=== PATIENT | female | born 1975 | race Caucasian/White ===

== ENCOUNTER 2022-05-01 12:20 | Observation (INO) ==
--- NOTE | 2022-05-01 13:39 | XRay Report ---
XR chest 2V PA/lateral CLINICAL HISTORY: Chest pain, nonspecific TECHNIQUE: 2 views of the chest were obtained. Comparison: Comparison is made to CT chest 07/24/2015 FINDINGS: No lines and tubes are seen. The cardiomediastinal silhouette is normal. The lungs are clear. No evid ence of pleural effusion or pneumothorax. IMPRESSION: No acute chest disease. ACT 112: Negative or not required by law. Electronically signed by: Jamshid Cesar M.D. 05/01/2022 1:38 PM
[2022-05-01 13:43] LABS: Basophils # (auto) 0.05 K/uL (0-0.2); Basophils % (auto) 0.4 %; Eosinophils # (auto) 0.15 K/uL (0-0.50); Eosinophils % (auto) 1.1 %; Hematocrit (blood only) 42.1 % (34.1-44.9); Hemoglobin 14.4 g/dl (12.0-16.0); Immature Granulocytes % (auto) 0.7 %; Lymphocytes # (auto) 1.59 K/uL (1.2-3.4); Lymphocytes % (auto) 11.2 %; Mean Corpuscular Hemoglobin 30.3 pg (25.0-34.0); Mean Corpuscular Hgb Conc 34.2 g/dL (32.0-36.0); Mean Corpuscular Volume 88.4 fL (80.0-100.0); Mean Platelet Volume 10.7 fL (9.4-12.3); Monocytes # (auto) 0.73 K/uL (0.24-0.82); Monocytes % (auto) 5.1 %; Neutrophils # (auto) 11.58 K/uL (1.4-6.5); Neutrophils % (auto) 81.5 %; Platelet Count 306 K/uL (130-400); RDW Coefficient of Variation 13.2 % (11.5-14.5); RDW Standard Deviation 42.5 fL (36.4-46.3); Red Blood Count 4.76 M/uL (3.93-5.22)
[2022-05-01 14:06] LABS: Partial Thromboplastin Ratio 0.9; Partial Thromboplastin Time 23.5 Seconds (21.0-31.0); Prothrombin Time 10.3 Seconds (9.0-12.0)
[2022-05-01 14:07] LABS: Troponin I High Sensitivity 2.8 pg/ml (0-14)
[2022-05-01 14:17] LABS: Alanine Aminotransferase 31 U/L (7-52); Albumin Globulin Ratio 1.1 (0.9-2); Albumin Level 3.8 gm/dl (3.4-5.0); Alkaline Phosphatase 75 U/L (34-104); Anion Gap 8 (3-11); Aspartate Aminotransferase 47 U/L (13-39); BUN Creatinine Ratio 18.1 (10-20); Bilirubin,Total 0.6 mg/dl (0.2-1.0); Blood Urea Nitrogen 15 mg/dl (6-23); Calcium 8.9 mg/dl (8.5-10.1); Carbon Dioxide 26 mmol/L (21-32); Chloride 100 mmol/L (98-107); Est GFR (African American) 96.6 ml/min; Est GFR (Non-African American) 83.4 ml/min; Globulin 3.4 gm/dl (2.5-4.0); Glucose 114 mg/dl (70-99(Fasting)); Potassium 3.7 mmol/L (3.5-5.1); Sodium 134 mmol/L (136-145); Total Protein 7.2 gm/dl (6.0-8.3)
--- NOTE | 2022-05-01 14:57 | Emergency Department Note ---
Impression & Plan Chest pain, Acute hyponatremia, Leukocytosis ED Provider Note NAME: KEVIN CONDE AGE: 46 SEX: F : 1975 ARRIVES VIA: Ambulance INFORMANT: Patient, ED PROVIDER(S): Germán Colin MD CHIEF COMPLAINT: Chest pain MEDICAL DECISION MAKING: Patient did present due to concern for chest pain. The patient did have blood work completed along with an EKG troponin and chest x-ray. The patient already received aspirin but was ordered additional nitro as well as Tylenol to help avoid any possible headache. White count of 14 but the patient denies any infectious symptoms. Normal H&H and platelet count. Kidney function is unremarkable. Mild hyponatremia 134. Initial troponin is negative. COVID- negative. I did reassess the patient did have improvement with her chest pain with nitro. Given this I did speak with the on-call hospitalist PORTIA Phillips and the patient was admitted by Dr. Burciaga. Prior /Outside records reviewed: None Differential diagnosis: Cardiac ischemia, aortic dissection, pulmonary embolism, pneumothorax, pneumonia, pericarditis, myocarditis, esophageal rupture, GERD, cholecystitis, pancreatitis, musculoskeletal, as well as other pathologies. Diagnostics, as interpreted by me: ECG: Normal sinus rhythm, rate of normal sinus rhythm, rate of 92 normal HI and QRS, normal axis nonspecific T wave abnormality. No ST elevations. Cardiac monitoring: An order was placed for continuous cardiac monitoring. The monitor shows a rate of 88 with sinus rhythm. Patient was placed on pulse oximetry Medical decision rules: None Imaging studies: See below HPI: Patient presents due to concern for chest pain. The patient states that this began she was getting her children ready for school around 10 and this morning. Patient described as a heaviness in the upper chest. Patient did not necessarily have exertional symptoms but did have some diaphoresis and did feel clammy. No reported nausea or vomiting. No prior history of heart attack or stroke in parents or siblings or in the patient. Patient is a non-smoker. No history of DVT or PE. The patient did not take anything for symptoms at home. The patient did receive aspirin 324 as well as nitro in route. Patient states that her pain went from a 10 to a 2 and did have significant relief. Patient does complain of some mild persistent chest discomfort at this time. No upper respiratory symptoms cough or fever. No history of DVT or PE. Patient denies any recent hospitalization surgeries or procedures. PAST MEDICAL HISTORY: See Below PAST SURGICAL HISTORY: See Below SOCIAL HISTORY: See Below HOME MEDICATIONS: See Below ALLERGIES: See Below VITALS: See Below PHYSICAL EXAMINATION: GENERAL: NAD, wearing a mask, non-toxic. EYE EXAM: Normal conjunctiva. PERRL, no anisocoria and EOM's grossly intact w/o pain. NECK: Supple, no nuchal rigidity, no adenopathy, non-tender. No signs of meningismus. FROM of the neck with good chin to chest and neck extension. No stridor. LUNGS: Clear to auscultation. Normal chest wall mechanics. HEART: NSR, no MRG. ABDOMEN: Abdomen soft, non-tender, normo-active bowel sounds, no masses, no rebound or guarding. BACK: No CVA TTP. SKIN: No rashes and no bruising. UPPER EXTREMITIES: Upper extremities are grossly normal. LOWER EXTREMITIES: Grossly normal, no edema. Negative Homans' sign bilaterally. NEURO EXAM: A&O x3, cranial nerves II-XII grossly intact, normal speech, moves all 4 extremities. Past Med/Surg History Medical History Anxiety and depression IBS (irritable bowel syndrome) Surgical History History of dilation and curettage History of tubal ligation Hx of cholecystectomy Family History Mother Breast cancer Father Prostate cancer Social History Smoking Status: Never smoker Second Hand Exposure: No; Hx Alcohol Use: Yes Hx Substance Use: No Preferred Language: Cambodian Communication Ability: Effective Angular Js Developer Required: No Beliefs That Will Affect Care: None Current Living Situation: Spouse Other Information That Helps Us Care for You: No Feels Safe at Home: Yes Safety Concerns: Feels Safe At This Time Assistive Devices: None Allergies Allergies Allergy/AdvReac Type Severity Reaction Status Date / Time No Known Allergies Allergy Verified 05/01/22 16:32 Home Meds Home Medications Medication Instructions Recorded Confirmed Probiotic Chewable 6 billion cells PO BID 05/01/22 05/01/22 diphenoxylate-atropine 2.5 1 tab PO DAILY 05/01/22 05/01/22 mg-0.025 mg tablet escitalopram oxalate 20 mg tablet 20 mg PO DAILY 05/01/22 05/01/22 pantoprazole 40 mg tablet,delayed 40 mg PO DAILY 05/01/22 05/01/22 release Results & Data (ED) Vital Signs Vital Signs - 24 hr 05/01/22 15:26 05/01/22 15:26 05/01/22 15:26 Pulse Rate 80 Pulse Rate [Finger] 88 Pulse Rhythm [Finger] Regular Respiratory Rate 18 18 Respiratory Effort / Characteristics Non-Labored Spontaneous Respiratory Depth Normal Blood Pressure [Left Arm] 121/92 Blood Pressure Mean [Left Arm] 101 Pulse Oximetry 96 96 Oxygen Delivery Method Room Air Room Air Room Air Oxygen Flow Rate 94 05/01/22 17:00 Pulse Rate Pulse Rate [Finger] 76 Pulse Rhythm [Finger] Respiratory Rate 18 Respiratory Effort / Characteristics Respiratory Depth Blood Pressure [Left Arm] 126/74 Blood Pressure Mean [Left Arm] 91 Pulse Oximetry 97 Oxygen Delivery Method Room Air Oxygen Flow Rate Home Medications Current Medication List: was personally reviewed by me Laboratory Data Attestation: I reviewed the patient's lab results. 05/01/22 13:22 05/01/22 13:22 Lab Results 05/01/22 05/01/22 05/01/22 Range/Units 13:22 13:22 13:22 WBC 14.20 H (4.8-10.8) K/ul RBC 4.76 (3.93-5.22) M/uL Hgb 14.4 (12.0-16.0) g/dl Hct 42.1 (34.1-44.9) % MCV 88.4 (80.0-100.0) fL MCH 30.3 (25.0-34.0) pg MCHC 34.2 (32.0-36.0) g/dL RDW Std Deviation 42.5 (36.4-46.3) fL RDW Coeff of Trent 13.2 (11.5-14.5) % Plt Count 306 (130-400) K/uL MPV 10.7 (9.4-12.3) fL Immature Gran % (Auto) 0.7 % Neut % (Auto) 81.5 % Lymph % (Auto) 11.2 % [place] % (Auto) 5.1 % Eos % (Auto) 1.1 % Baso % (Auto) 0.4 % Neut # (Auto) 11.58 H (1.4-6.5) K/uL Lymph # (Auto) 1.59 (1.2-3.4) K/uL [place] # (Auto) 0.73 (0.24-0.82) K/uL Eos # (Auto) 0.15 (0-0.50) K/uL Baso # (Auto) 0.05 (0-0.2) K/uL Immature Gran # (Auto) 0.10 H (0.00-0.02) K/uL PT 10.3 (9.0-12.0) Seconds INR 1.0 (0.9-1.1) APTT 23.5 (21.0-31.0) Seconds PTT Ratio 0.9 Sodium 134 L (136-145) mmol/L Potassium 3.7 (3.5-5.1) mmol/L Chloride 100 (98-107) mmol/L Carbon Dioxide 26 (21-32) mmol/L Anion Gap 8 (3-11) BUN 15 (6-23) mg/dl Creatinine 0.83 (0.6-1.2) mg/dl Est Cr Clr Drug Dosing Not Reportable Est GFR ( Amer) 96.6 ml/min Est GFR (Non-Af Amer) 83.4 ml/min BUN/Creatinine Ratio 18.1 (10-20) Glucose 114 H (70-99(Fasting)) mg/dl Calcium 8.9 (8.5-10.1) mg/dl Total Bilirubin 0.6 (0.2-1.0) mg/dl AST 47 H (13-39) U/L ALT 31 (7-52) U/L Alkaline Phosphatase 75 (34-104) U/L Troponin I High Sens 2.8 (0-14) pg/ml Total Protein 7.2 (6.0-8.3) gm/dl Albumin 3.8 (3.4-5.0) gm/dl Globulin 3.4 (2.5-4.0) gm/dl Albumin/Globulin Ratio 1.1 (0.9-2) SARS-CoV-2, RNA, NAAT (NEGATIVE) 05/01/22 05/01/22 Range/Units 16:30 17:09 WBC (4.8-10.8) K/ul RBC (3.93-5.22) M/uL Hgb (12.0-16.0) g/dl Hct (34.1-44.9) % MCV (80.0-100.0) fL MCH (25.0-34.0) pg MCHC (32.0-36.0) g/dL RDW Std Deviation (36.4-46.3) fL RDW Coeff of Trent (11.5-14.5) % Plt Count (130-400) K/uL MPV (9.4-12.3) fL Immature Gran % (Auto) % Neut % (Auto) % Lymph % (Auto) % [place] % (Auto) % Eos % (Auto) % Baso % (Auto) % Neut # (Auto) (1.4-6.5) K/uL Lymph # (Auto) (1.2-3.4) K/uL [place] # (Auto) (0.24-0.82) K/uL Eos # (Auto) (0-0.50) K/uL Baso # (Auto) (0-0.2) K/uL Immature Gran # (Auto) (0.00-0.02) K/uL PT (9.0-12.0) Seconds INR (0.9-1.1) APTT (21.0-31.0) Seconds PTT Ratio Sodium (136-145) mmol/L Potassium (3.5-5.1) mmol/L Chloride (98-107) mmol/L Carbon Dioxide (21-32) mmol/L Anion Gap (3-11) BUN (6-23) mg/dl Creatinine (0.6-1.2) mg/dl Est Cr Clr Drug Dosing Est GFR ( Amer) ml/min Est GFR (Non-Af Amer) ml/min BUN/Creatinine Ratio (10-20) Glucose (70-99(Fasting)) mg/dl Calcium (8.5-10.1) mg/dl Total Bilirubin (0.2-1.0) mg/dl AST (13-39) U/L ALT (7-52) U/L Alkaline Phosphatase (34-104) U/L Troponin I High Sens 3.1 (0-14) pg/ml Total Protein (6.0-8.3) gm/dl Albumin (3.4-5.0) gm/dl Globulin (2.5-4.0) gm/dl Albumin/Globulin Ratio (0.9-2) SARS-CoV-2, RNA, NAAT NEGATIVE (NEGATIVE) Administered Medications Escitalopram Oxalate (Escitalopram Oxalate 20 Mg Tab) 20 mg PO DAILY TOBI Stop: 06/01/22 08:59 Last Admin: 05/02/22 08:26 Dose: 20 mg Documented By: MG Pantoprazole Sodium (Pantoprazole 40 Mg Tab) 40 mg PO BID TOBI Stop: 05/31/22 20:59 Last Admin: 05/02/22 08:26 Dose: 40 mg Documented By: Admin: 05/01/22 20:32 Dose: Not Given Documented By: LUIS MIGUEL Discontinued Medications Al Hydrox/Mg Hydrox/Simethicone (Gi Cocktail Ed Use) 1 dose PO NOW ONE Stop: 05/01/22 17:46 Last Admin: 05/01/22 17:58 Dose: 1 dose Documented By: ZELALEM Sodium Chloride (Nss 1000ml) 500 mls @ 999 mls/hr IV .Q31M ONE Stop: 05/01/22 15:38 Last Infusion: 05/01/22 16:02 Dose: 0 mls/hr Documented By: Admin: 05/01/22 15:16 Dose: 999 mls/hr Documented By: VALENTE Nitroglycerin (Nitroglycerin Sl 0.4 Mg/Tab Tab) 0.4 mg SL NOW STA Stop: 05/01/22 15:09 Last Admin: 05/01/22 15:16 Dose: 0.4 mg Documented By: VALENTE Imaging Data Radiologist's Impression: Chest X-Ray 05/01/22 12:59 XR chest 2V PA/lateral CLINICAL HISTORY: Chest pain, nonspecific TECHNIQUE: 2 views of the chest were obtained. Comparison: Comparison is made to CT chest 07/24/2015 FINDINGS: No lines and tubes are seen. The cardiomediastinal silhouette is normal. The lungs are clear. No evidence of pleural effusion or pneumothorax. IMPRESSION: No acute chest disease. ACT 112: Negative or not required by law. Electronically signed by: Jamshid Cesar M.D. 05/01/2022 1:38 PM Discharge Plan Visit Data Chief Complaint: Chest Pain Stated Complaint: WEAKNESS, UNABLE TO AMBULATE ED Provider: Germán Colin Discharge Problem: Chest pain, Acute hyponatremia, Leukocytosis Patient Disposition: Admitted As Inpatient Discharge Instructions Interventions: ED Discharge Assessment Last Done: 05/01/22 21:35
[2022-05-01] MEDS ORDERED: NITROGLYCERIN SL 0.4 MG/TAB TAB SL STA (15:08)
[2022-05-01] MEDS ORDERED: SODIUM CHLORIDE 0.9% 1000ML 500 ML IV ONE (15:08)
[2022-05-01] MEDS ORDERED: ALUMINUM/MAGNESIUM SUSP 18 ML, LIDOCAINE VISCOUS 2% SOLN 6 ML, BARCODE IDENTIFIER 1 EACH PO ONE (17:32)
[2022-05-01] MEDS ORDERED: GI COCKTAIL ED USE PO ONE (17:45)
--- NOTE | 2022-05-01 17:47 | History & Physical Report ---
Date of Service May 01, 2022 Assessment & Plan (1) Chest pain: Plan: Obs to med/surg with tele Patient presenting from home with reports of a sudden onset midsternal, sharp chest pain. Improvement in symptoms with 3 sprays of nitroglycerin by EMS and 1 sublingual nitroglycerin in the ED. Initial troponin negative, EKG without acute ST changes History of GI issues over the past 1 year. ?? Esophageal spasm causing symptoms today Trial GI cocktail Increase PPI to BID Trend troponin, resting echo to evaluate for wall motion abnormalities (2) Anxiety and depression: Plan: Continue escitalopram DVT PROPHYLAXIS SCDs I spent a total of 45 minutes coordinating, documenting, and providing care for this patient excluding time spent in the performance of separately billed services. This included personally reviewing all current laboratories and imaging studies, medication reconciliation, outpatient chart review, and discussion with specialists. History of Present Illness Chief Complaint: Chest pain Primary Care Provider: Jose Olguin MD 46-year-old female with PMH anxiety, depression, IBS, and other problems listed below who presents to the ED for evaluation of chest pain. Patient reports that she was getting her children ready for school this morning when she had sudden onset of a midsternal, sharp chest pain. Patient rates the pain as a #10/10. States that her daughter called EMS. Patient reports associated diaphoresis. Denies shortness of breath, lightheadedness, dizziness, nausea. Patient received 3 sprays of nitroglycerin by EMS and 4 baby aspirin. Patient reports this improved her pain significantly. While in the ED, patient had another episode of sharp pain. She received 1 sublingual nitroglycerin and again had improvement in discomfort. Patient currently rates her pain as a #2/10. Over the past 1 to 2 years, patient has been having GI issues including postprandial nausea and diarrhea. Patient has been diagnosed with IBS. She also has history of atypical chest pain that was felt to be secondary to GERD in the past and was started on PPI with improvement in symptoms. Patient reports he otherwise has been feeling well recently. No other recent illnesses, fevers, chills. She denies urinary symptoms. In the ED, initial troponin is negative, EKG without acute ST changes. Patient is hemodynamically stable. Allergies Allergy/AdvReac Type Severity Reaction Status Date / Time No Known Allergies Allergy Verified 05/01/22 16:32 Home Medications Medication Instructions Recorded Confirmed Type Probiotic Chewable 6 billion cells PO BID 05/01/22 05/01/22 History diphenoxylate-atropine 2.5 1 tab PO DAILY 05/01/22 05/01/22 History mg-0.025 mg tablet escitalopram oxalate 20 mg tablet 20 mg PO DAILY 05/01/22 05/01/22 History pantoprazole 40 mg tablet,delayed 40 mg PO DAILY 05/01/22 05/01/22 History release Past Med/Surg History Medical History Anxiety and depression IBS (irritable bowel syndrome) Surgical History History of dilation and curettage History of tubal ligation Hx of cholecystectomy Family History Mother Breast cancer Father Prostate cancer Social History (Updated 05/01/22 @ 17:43 by PORTIA Plascencia) Smoking Status: Never smoker Hx Alcohol Use: Yes (24 twisted teas/weekend) Feels Safe at Home: Yes Review of Systems Review of Systems: ROS per HPI, all other systems reviewed and negative Physical Exam Constitutional: WD/WN, vitals as above Eyes: PERRL, conjunctivae normal, anicteric sclerae ENMT: external ear and nose normal, oropharynx normal Respiratory: normal respiratory effort, lungs clear to auscultation Cardiovascular: Rate/Rhythm: regular rate and regular rhythm Vessels: normal peripheral pulses Extremities: no edema Chest (Breasts): Additional Comments: chest pain not reproducible with palpation Gastrointestinal (Abdomen): normal bowel sounds, soft, nontender, no hepatosplenomegaly Musculoskeletal: no cyanosis or clubbing, extremities motor strength 5/5 Skin: no rashes, warm and dry Neurologic: PERRL, EOMI, accommodation nl, no face palsy, no dysarthria Psychiatric: A+Ox3, euthymic affect Results & Data Results & Data ([facility]) Vital Signs (Past 12 Hours) Vital Signs Temp Pulse Pulse Resp BP BP Pulse Ox 05/01/22 17:00 76 18 126/74 97 05/01/22 15:26 80 18 96 05/01/22 15:26 88 18 121/92 96 05/01/22 15:26 05/01/22 12:54 37.5 C 96 H 20 124/83 97 O2 Del Method O2 Flow Rate 05/01/22 17:00 Room Air 05/01/22 15:26 Room Air 05/01/22 15:26 Room Air 05/01/22 15:26 Room Air 94 05/01/22 12:54 Room Air Laboratory Results Short CBC 05/01/22 Range/Units 13:22 WBC 14.20 H (4.8-10.8) K/ul Hgb 14.4 (12.0-16.0) g/dl Hct 42.1 (34.1-44.9) % Plt Count 306 (130-400) K/uL BMP 05/01/22 13:22 Sodium 134 L Potassium 3.7 Chloride 100 Carbon Dioxide 26 BUN 15 Creatinine 0.83 Glucose 114 H Calcium 8.9 Liver Function 05/01/22 Range/Units 13:22 Total Bilirubin 0.6 (0.2-1.0) mg/dl AST 47 H (13-39) U/L ALT 31 (7-52) U/L Alkaline Phosphatase 75 (34-104) U/L Albumin 3.8 (3.4-5.0) gm/dl Diagnostic Findings Chest X-Ray 05/01/22 12:59 XR chest 2V PA/lateral CLINICAL HISTORY: Chest pain, nonspecific TECHNIQUE: 2 views of the chest were obtained. Comparison: Comparison is made to CT chest 07/24/2015 FINDINGS: No lines and tubes are seen. The cardiomediastinal silhouette is normal. The lungs are clear. No evidence of pleural effusion or pneumothorax. IMPRESSION: No acute chest disease. ACT 112: Negative or not required by law. Electronically signed by: Jamshid Cesar M.D. 05/01/2022 1:38 PM Code Status & VTE Plan VTE Prophylaxis Plan VTE Prophylaxis will be ordered: Yes Supervising Physician Co-Signing Physician Notes The patient is a 46-year-old female presenting with acute sharp midsternal chest pain that improved with nitroglycerin. She reports symptoms like this in the past that were improved with drinking water and were thought to be related to acid reflux. She reports not taking Protonix until just yesterday when her PCP put her on Protonix and Lomotil. She also has ongoing diarrhea as noted above. She reports some days she can have 6 loose stools and other days she can have just 1. She gets generalized cramping associated with the stools that is intermittent. She had an EGD and colonoscopy per record review in June 2021. Colonoscopy revealed multiple small polyps in the transverse colon and one polyp in the rectum. EGD revealed normal esophagus normal stomach and normal duodenum. Biopsies were taken in upper and lower GI tract showing tubular adenomas. Welchol was attempted for her diarrhea but she didn't use it with any frequency and therefore was unsure if this was helpful. She reports being started on Lomotil and Protonix yesterday by her PCP. On exam she is an obese female in NAD. Cardiac exam is unremarkable and there is no chest wall TTP. Lungs are clear to auscultation throughout. Abdomen is soft NTND. There is no gross focal neuromuscular deficits. Workup today includes a leukocytosis of 14K, H/H 12/42, and normal PLT. Coag panel is normal. Chemistry is normal. Liver panel reveals a mildly elevated AST at 47 and ALT 31. HS troponin is 2.8-->3.1. EKG is non ischemic. CXR is clear. Overall this is a 46-year-old female presenting with atypical chest pain in the substernal region. Etiologies include but are not limited to esophageal spasm, uncontrolled GERD, gastritis. This pain does not appear cardiac in nature. She appears on educated about sugar intake and diet. She reported to me that she eats salads all the time and does not understand why she cannot lose weight. However, she reports drinking 20+ twisted teas on the weekends which contain 23 g of sugar each. When I asked about an elimination diet she said yes she has tried them but did not go into detail. She may need more education on these so she can try a lactose-free diet, etc. Outpatient follow-up with GI as recommended. She should continue on her Protonix but use caution with Lomotil as this can cause significant constipation. Agree with continuing to observe her overnight and attempt to control her pain with PPI therapy or H2 maria teresa the rapy as needed. May even consider Carafate in the short-term given the excessive alcohol intake on the weekends and possibility of gastritis. Outpatient nutrition consult is also recommended for further education on weight loss strategies. DO Gualberto
[2022-05-01] MEDS ORDERED: NITROGLYCERIN SL 0.4 MG/TAB TAB SL PRN (19:33)
[2022-05-01] MEDS ORDERED: ACETAMINOPHEN 325 MG TAB PO PRN (19:33)
[2022-05-01] MEDS: PANTOprazole 40 MG TAB PO SCH (20:32)
[2022-05-02 07:23] LABS: Hematocrit (blood only) 40.8 % (34.1-44.9); Hemoglobin 13.5 g/dl (12.0-16.0); Mean Corpuscular Hemoglobin 29.7 pg (25.0-34.0); Mean Corpuscular Hgb Conc 33.1 g/dL (32.0-36.0); Mean Corpuscular Volume 89.7 fL (80.0-100.0); Mean Platelet Volume 10.6 fL (9.4-12.3); Platelet Count 271 K/uL (130-400); RDW Coefficient of Variation 13.5 % (11.5-14.5); RDW Standard Deviation 44.7 fL (36.4-46.3); Red Blood Count 4.55 M/uL (3.93-5.22); White Blood Count 5.77 K/ul (4.8-10.8)
[2022-05-02 07:45] LABS: Troponin I High Sensitivity < 2.3 pg/ml (0-14)
[2022-05-02 07:58] LABS: Anion Gap 3 (3-11); Calcium 8.5 mg/dl (8.5-10.1); Carbon Dioxide 31 mmol/L (21-32); Chloride 104 mmol/L (98-107); Potassium 4.3 mmol/L (3.5-5.1); Sodium 138 mmol/L (136-145)
[2022-05-02 08:03] LABS: BUN Creatinine Ratio 16.1 (10-20); Blood Urea Nitrogen 14 mg/dl (6-23); Creatinine Clr Calc Pharmacy 88.9 ml/min; Est GFR (African American) 91.3 ml/min; Est GFR (Non-African American) 78.8 ml/min; Glucose 104 mg/dl (70-99(Fasting))
[2022-05-02 08:10] LABS: Partial Thromboplastin Ratio 0.9; Partial Thromboplastin Time 23.9 Seconds (21.0-31.0)
[2022-05-02] MEDS: PANTOprazole 40 MG TAB PO SCH (08:26)
[2022-05-02] MEDS ORDERED: ESCITALOPRAM OXALATE 20 MG TAB PO SCH (09:00)
--- NOTE | 2022-05-02 16:31 | Discharge Summary ---
Date of Service May 02, 2022 Admission HPI Per Admitting Provider 46-year-old female with PMH anxiety, depression, IBS, and other problems listed below who presents to the ED for evaluation of chest pain. Patient reports that she was getting her children ready for school this morning when she had sudden onset of a midsternal, sharp chest pain. Patient rates the pain as a #10/10. States that her daughter called EMS. Patient reports associated diaphoresis. Denies shortness of breath, lightheadedness, dizziness, nausea. Patient received 3 sprays of nitroglycerin by EMS and 4 baby aspirin. Patient reports this improved her pain significantly. While in the ED, patient had another episode of sharp pain. She received 1 sublingual nitroglycerin and again had improvement in discomfort. Patient currently rates her pain as a #2/10. Over the past 1 to 2 years, patient has been having GI issues including postprandial nausea and diarrhea. Patient has been diagnosed with IBS. She also has history of atypical chest pain that was felt to be secondary to GERD in the past and was started on PPI with improvement in symptoms. Patient reports he otherwise has been feeling well recently. No other recent illnesses, fevers, chills. She denies urinary symptoms. In the ED, initial troponin is negative, EKG without acute ST changes. Patient is hemodynamically stable. Admission Exam Per Admitting Provider Constitutional: WD/WN, vitals as above Eyes: PERRL, conjunctivae normal, anicteric sclerae ENMT: external ear and nose normal, oropharynx normal Respiratory: normal respiratory effort, lungs clear to auscultation Cardiovascular: Rate/Rhythm: regular rate and regular rhythm Vessels: normal peripheral pulses Extremities: no edema Chest (Breasts): Additional Comments: chest pain not reproducible with palpation Gastrointestinal (Abdomen): normal bowel sounds, soft, nontender, no hepatosplenomegaly Musculoskeletal: no cyanosis or clubbing, extremities motor strength 5/5 Skin: no rashes, warm and dry Neurologic: PERRL, EOMI, accommodation nl, no face palsy, no dysarthria Psychiatric: A+Ox3, euthymic affect Principal Diagnosis Suspected GERD Chest Pain, ACS ruled out. Discharge Exam Constitutional: WD/WN, vitals as above, NAD, sitting up in bed, pleasant, conversing easily Respiratory: normal respiratory effort, lungs clear to auscultation, no wheeze, rales, rhonchi. Normal insp/exp effort, no accessory muscle use Cardiovascular: RRR, no murmur, no edema Vessels: no JVD or carotid bruit Chest: normal inspection of chest Abdomen: normal bowel sounds, soft, nontender, no hepatosplenomegaly Musculoskeletal: no cyanosis or clubbing, extremities motor strength 5/5 Skin: no rashes, warm and dry normal turgor Neurologic: PERRL, EOMI, accommodation nl, no face palsy, no dysarthria CN's II- XI intact bilaterally and moves all extremities Psychiatric: A+Ox3, euthymic affect Lymphatic: no cervical or axillary lymphadenopathy : deferred Discharge Data Allergies Allergy/AdvReac Type Severity Reaction Status Date / Time No Known Allergies Allergy Verified 05/01/22 16:32 Consultations 05/01/22 17:24 ED Decision to Admit Stat Hospital Course (1) Chest pain: (2) Anxiety and depression: Plan Patient is a 46-year-old female with past medical history of anxiety, depression, IBS who presented to the ED with chest pain. She was admitted to telemetry for further work-up. EKG showed normal sinus rhythm; no ST changes. High sensitive troponin was negative multiple times. Patient's chest pain was improved with GI cocktail. She was started on Protonix twice daily. Her echocardiogram showed ejection fraction of 60 to 65%; no abnormalities were seen. The likely underlying cause for her chest pain is GERD. Patient to follow-up with GI as outpatient. She was prescribed Tums to be taken as needed. She was also prescribed Protonix to be taken 40 mg twice daily. Follow-up appointment with her primary care was set up at discharge. Total Time Total Time Spent Total Time Spent (In Minutes): 40 Total Time Includes: Examination of the Patient, Discharge Planning, Medication Reconciliation, Communication With Other Providers and Other Discharge Plan Discharge Items Patient Disposition: Home - Self-Care Reason For Visit: CHEST PAIN Discharge Diagnosis: Suspected GERD Chest pain, ACS ruled out Activity: Resume your previous activity Non-emergency contact: Primary Care Provider Call non-emergency contact if: you have any medication questions and your symptoms worsen Follow-up/Referrals: Jose Olguin MD [Primary Care Provider] - (Date & Time 05/08/2022 3:00 PM Provider Jose Olguin MD Department Family Medicine [facility] Diet: Regular Addtl Attending Provider Instructions: You were admitted to the hospital with chest pain. Cardiac enzymes were negative. EKG was normal. You have echocardiogram done which showed good ejection fraction (60 to 65%); no abnormalities were seen. The likely underlying cause for your chest pain is due to GERD. Please avoid spicy and oily food. Please take Tums as necessary when you have the pain. Please take Protonix twice daily as instructed by your primary care doctor. You have a follow-up appointment with your primary care doctor on May 08. Please discuss regarding outpatient stress test. Pending Studies at Discharge: No Stand-Alone Forms: My [facility] [employer], Smoking Cessation Medications and DC Order Prescriptions: New calcium carbonate [Tums] 300 mg (750 mg) tablet,chewable 300 mg PO TID PRN (Reason: dyspepsia) Qty: 60 0RF pantoprazole 40 mg Tablet,Delayed Release (Dr/Ec) 40 mg PO BID Qty: 60 0RF Continued diphenoxylate-atropine 2.5-0.025 mg tablet 1 tab PO DAILY pantoprazole 40 mg tablet,delayed release (DR/EC) 40 mg PO DAILY escitalopram oxalate 20 mg tablet 20 mg PO DAILY Probiotic Chewable 6 billion cells PO BID Discharge Orders: Discharge Order (Routine); Ordered 05/02/22 Ordered By: Darwin Frazier Admission Data Admit Date/Time: 05/01/22 17:31 Attending Provider: Darwin Frazier Admit Provider: Nidhi Burciaga Primary Care Provider: Jose Olguin Other Providers: Nidhi Burciaga
--- NOTE | 2022-05-03 06:20 | Electrocardiogram Report ---
Test Reason : Blood Pressure : / mmHG Vent. Rate : 092 BPM Atrial Rate : 092 BPM P-R Int : 128 ms QRS Dur : 066 ms QT Int : 380 ms P-R-T Axes : 041 035 020 degrees QTc Int : 469 ms Poor data quality, interpretation may be adversely affected Normal sinus rhythm Nonspecific T wave abnormality Abnormal ECG When compared with ECG of 24-JUL-2015 15:10, QT has lengthened Confirmed by Ruiz Ang ([id number]) on 05/03/2022 6:20:41 AM Referred By: Confirmed By:Ruiz Ang
--- NOTE | 2022-05-03 06:24 | Electrocardiogram Report ---
Test Reason : Blood Pressure : / mmHG Vent. Rate : 083 BPM Atrial Rate : 083 BPM P-R Int : 114 ms QRS Dur : 066 ms QT Int : 368 ms P-R-T Axes : 015 042 037 degrees QTc Int : 432 ms Poor data quality, interpretation may be adversely affected Normal sinus rhythm Nonspecific T wave abnormality Abnormal ECG When compared with ECG of 01-MAY-2022 13:09, No significant change was found Confirmed by Ruiz Ang ([id number]) on 05/03/2022 6:23:36 AM Referred By: REFERRED SELF Confirmed By:Ruiz Ang
--- NOTE | 2022-05-03 21:02 | Electrocardiogram Report ---
Test Reason : Blood Pressure : / mmHG Vent. Rate : 072 BPM Atrial Rate : 072 BPM P-R Int : 146 ms QRS Dur : 074 ms QT Int : 406 ms P-R-T Axes : 029 052 -04 degrees QTc Int : 444 ms Normal sinus rhythm Nonspecific T wave abnormality When compared with ECG of 01-MAY-2022 14:18, No significant change Confirmed by Ruiz Ang ([id number]) on 05/03/2022 9:02:38 PM Referred By: REFERRED SELF Confirmed By:Ruiz Ang
== END 2022-05-02 17:58 | disposition home or self-care (01) ==
LOC: ED 12:20 → EDINP 12:20 → SUATTDRO 17:31 → 2N 21:35
DX: R07.9 Chest pain, unspecified